=== PATIENT | female | born 1980 | race Caucasian/White ===

== ENCOUNTER 2016-07-01 11:01 | Emergency (ER) | payer OTHER ==
[2016-07-01] MEDS ORDERED: methylPREDNISolone INJ 125 MG/2 ML VIAL (J2930) As Ordered ONE (12:06)
[2016-07-01] MEDS ORDERED: ALBUTEROL SULFATE 2.5 MG/0.5 ML INH NEB SOLN As Ordered ONE (12:15)
--- NOTE | 2016-07-01 12:30 | REP ---
Chest two views HISTORY: Cough Comparison: 05/13/2013 The right lung is clear. A calcified granuloma is present in the left lower lobe. The heart is normal in size. The pulmonary vasculature is normal in appearance. The bony structure is intact. IMPRESSION: Old granulomatous disease. Signed by Devan Blakely MD 07/01/2016 12:22 P
[2016-07-01] MEDS ORDERED: IPRATROPIUM 0.5MG/ALBUTEROL 2.5MG INH SOL UD 3ML (DUONEB)(J7620) As Ordered ONE (12:31)
[2016-07-01] MEDS ORDERED: ALBUTEROL 90 MCG/ACT 8GM HFA INHALER As Ordered ONE (13:44)
--- NOTE | 2016-07-01 13:49 | EDDOCDS ---
Physician Documentation [facility] Name: Zully Avila Age: 36 yrs Sex: Female : 1980 Arrival Date: 07/01/2016 Time: 11:01 Bed PD Private MD: Devan Padilla W Disposition: 07/01/16 13:30 Discharged to Home/Self Care. Impression: Unspecified asthma with (acute) exacerbation, Cough. - Condition is Stable. - Discharge Instructions: Asthma, Adult, Cough, Adult, [id number]. - Prescriptions for Prednisone 20 mg Oral Tablet - take 2 tablet by ORAL route once daily for 5 days; 10 tablet. ipratropium- albuterol 0.5 mg-3 mg(2.5 mg base)/3 mL Inhalation Solution for Nebulization - inhale 1 ampule by INHALATION route 3-4 times daily As needed; 1 box. - Medication Reconciliation, Local Pharmacy Hours form. - Follow up: Emergency Department; When: As needed; Reason: Worsening of conditions. Follow up: Private Physician; When: 2 - 3 days; Reason: Wound/Symptom Recheck, Recheck today's complaints, Continuance of care. - Problem is new. - Symptoms have improved. Historical: - Allergies: no known allergies; - Home Meds: 1. Fish Oil 1,000 mg Oral cap daily 2. Ventolin HFA 90 mcg/actuation Nebulizer HFAA 2 puffs PRN 3. Vitamin D Oral 3000 unit daily - PMHx: Asthma; Bronchitis; ovarian cancer; - PSHx: removal right ovary; - Social history: Smoking status: Patient states was never smoker of tobacco. No barriers to communication noted, The patient speaks fluent Luxembourgish, Speaks appropriately for age. - Family history: Not pertinent. - : The pt / caregiver states he / she is not on anticoagulants. Home medication list is obtained from the patient. - Exposure Risk Screening:: None identified. 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 1 in. (154.94 cm) (R); Pain 0/10; 13:19 BP 179 / 77; Pulse 92; Resp 18; Temp 97.8(T); Pulse Ox 99% on R/A; Pain 0/10; jb5 11:02 Body Mass Index 34.01 (81.65 kg, 154.94 cm) ct3 MDM: 12:00 Albuterol 2.5 mg Nebulizer once ordered. dt4 12:00 Call Respiratory ordered. dt4 12:00 methylPREDNISolone Sodium Succinate 125 mg IM once ordered. dt4 12:01 Chest, 2 View (pa\E\lat) Ordered. EDMS 12:02 Call Respiratory complete. srm 12:30 Albuterol-Ipratropium 3 ml Inhalation once ordered. dt4 12:42 Financial registration complete. lg 12:43 [facility] Payment Agreement was scanned into [employer] and attached to record. lg 13:24 Ventolin Inhaler 2 puffs Inhalation once; GIVE TO PT TO TAKE HOME, THANK YOU. ordered. dt4 Administered Medications: 12:11 Drug: methylPREDNISolone Sodium Succinate 125 mg [methylprednisolone sodium succ 125 mg jf3 solution for injection (125 mg)] Route: IM; Site: left gluteus; 12:20 Drug: Albuterol 2.5 mg [albuterol sulfate 2.5 mg/0.5 mL solution for nebulization (0.5 cs15 mL)] Route: Nebulizer; 12:34 Drug: Albuterol-Ipratropium 3 ml [ipratropium-albuterol 0.5 mg-3 mg(2.5 mg base)/3 mL cs15 nebulization soln (3 mL)] Route: Inhalation; 13:47 Drug: Ventolin 2 puffs [Ventolin HFA 90 mcg/actuation aerosol inhaler (2 puffs)] Route: srm Inhalation; Signatures: Dispatcher [employer] EDMS Nasreen Man RN RN srm Arti Pascual, Reg Reg lg Edilia Marquez, THERESAC PA-C dt4 Salvador Lucio RT cs15 Kevin Small RN jf3 The chart was reviewed and I authenticate all verbal orders and agree with the evaluation and treatment provided.Attachments: 12:43 [facility] Payment Agreement lg MTDD
--- NOTE | 2016-07-01 13:49 | EDDOCDS ---
Nurse's Notes [facility] Name: Zully Avila Age: 36 yrs Sex: Female : 1980 Arrival Date: 07/01/2016 Time: 11:01 Bed PD Private MD: Devan Padilla W Diagnosis: Unspecified asthma with (acute) exacerbation;Cough Presentation: 07/01 11:11 Presenting complaint: Patient states: has had cold symptoms for past couple of weeks- srm stuffy nose, coughing non productive. Adult Sepsis Screening: The patient does not have new or worsening altered mentation. Patient's respiratory rate is less than 22. Systolic blood pressure is greater than 100. Patient has a qSOFA score of 0- Negative Sepsis Screen. Suicide/Homicide risk assessment- the patient denies having any suicidal and/or homicidal ideations and does not present with any other emotional, behavioral or mental health complaints. Status: Patient is not a service administrator or dependent. Transition of care: patient was not received from another setting of care. 11:11 Acuity: DAISY Level 4 srm 11:11 Method Of Arrival: Walkin/Carried/Asstd srm Triage Assessment: 11:13 General: Appears in no apparent distress, Behavior is appropriate for age, cooperative. srm Pain: Denies pain. HIV screening NA for this visit Offered previously. 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 Fish Oil 1,000 mg Oral cap daily 2. Ventolin HFA 90 mcg/actuation Nebulizer HFAA 2 puffs PRN 3. Vitamin D Oral 3000 unit daily - PMHx: Asthma; Bronchitis; ovarian cancer; - PSHx: removal right ovary; - Social history: Smoking status: Patient states was never smoker of tobacco. No barriers to communication noted, The patient speaks fluent Sierra Leonean, Speaks appropriately for age. - Family history: Not pertinent. - : The pt / caregiver states he / she is not on anticoagulants. Home medication list is obtained from the patient. - Exposure Risk Screening:: None identified. Screenin:47 Screening information is obtained from the patient. Fall risk: No risks identified. srm Assistance ADL's: requires no assistance with activities of daily living. Abuse/DV Screen: The patient / caregiver reports he/she is: not in a situation that causes fear, pain or injury. Nutritional screening: No deficits noted. Advance Directives: There is no active DNR order. home support is adequate. Assessment: 13:47 General: Appears in no apparent distress, Behavior is appropriate for age, cooperative. srm Respiratory: Airway is compromised Respiratory effort is even, unlabored, Reports cough that is. Derm: No deficits noted. Vital Signs: 11:02 BP 144 / 82; Pulse 76; Resp 18; Temp 97.1(O); Pulse Ox 99% on R/A; Weight 81.65 kg (R); ct3 Height 5 ft. 1 in. (154.94 cm) (R); Pain 0/10; 13:19 BP 179 / 77; Pulse 92; Resp 18; Temp 97.8(T); Pulse Ox 99% on R/A; Pain 0/10; jb5 11:02 Body Mass Index 34.01 (81.65 kg, 154.94 cm) ct3 Vitals: 11:02 Log In Time: July 01, 2016 at 10:59. ct3 ED Course: 11:01 Patient visited by Abigail Gaffney PCA. ct3 11:01 Devan Padilla is Private Physician. ct3 11:01 Patient moved to Waiting ct3 11:02 Patient moved to Pre RCE ct3 11:12 Triage Initiated srm 11:13 Patient moved to Triage 3 srm 11:47 Patient visited by Ivon Muir PCA. jb5 11:48 Edilia Marquez PA-C [facility]. dt4 11:48 Paola Sharif MD is Attending Physician. dt4 11:48 Patient visited by Edilia Marquez PA-C. dt4 12:02 Patient moved to PD2 / srm 12:43 [facility] Payment Agreement was scanned into [employer] and attached to record. lg 12:49 Patient visited by Ivon Muir PCA. jb5 12:59 Chest, 2 View (pa\E\lat) Returned. EDMS 13:19 Patient visited by Ivon Muir PCA. jbJane 13:20 Patient visited by Ivon Muir PCA. jb5 13:47 The patient / caregiver is instructed regarding the plan of care and ED course. Patient srm has correct armband on for positive identification. 13:47 No IV's were initiated during this patient's visit. No procedures done that require srm assistance. Administered Medications: 12:11 Drug: methylPREDNISolone Sodium Succinate 125 mg [methylprednisolone sodium succ 125 mg jf3 solution for injection (125 mg)] Route: IM; Site: left gluteus; 12:20 Drug: Albuterol 2.5 mg [albuterol sulfate 2.5 mg/0.5 mL solution for nebulization (0.5 cs15 mL)] Route: Nebulizer; 12:34 Drug: Albuterol-Ipratropium 3 ml [ipratropium-albuterol 0.5 mg-3 mg(2.5 mg base)/3 mL cs15 nebulization soln (3 mL)] Route: Inhalation; 13:47 Drug: Ventolin 2 puffs [Ventolin HFA 90 mcg/actuation aerosol inhaler (2 puffs)] Route: srm Inhalation; RT: 12:21 Initial Med Neb Given as ordered. Respiratory: Respiratory effort is unlabored, cs15 Respiratory pattern is regular Breath sounds are diminished bilaterally. Reports that she gets cold symptoms like this every winter that lead to SOB. She has a ventiolin inhaler which she uses without a spacer. 12:34 Subsequent Med Neb Given as ordered. Respiratory: Breath sounds are diminished cs15 bilaterally. Reports that the first tx helped her a little. 12:44 Respiratory: Breath sounds are clear bilaterally. cs15 Order Results: Radiology Order: Chest, 2 View (pa\E\lat) Test: Chest, 2 View (pa\E\lat) REASON FOR EXAMINATION: Cough;Shortness of Breath; Chest two views; ; HISTORY: Cough; ; Comparison: 05/13/2013; ; The right lung is clear. A calcified granuloma is present in the left lower; lobe. The heart is normal in size. The pulmonary vasculature is normal in; appearance. The bony structure is intact.; ; IMPRESSION: Old granulomatous disease.; ; ; Signed by; Devan Blakely MD 07/01/2016 12:22 P; Outcome: 13:30 Discharge ordered by Provider. dt4 13:47 Discharge Assessment: patient administered narcotics - no. The following High Risk srm Discharge criteria are identified: None. Discharged to home ambulatory. Condition: good Condition: stable. Discharge instructions given to patient, Instructed on discharge instructions, follow up and referral plans. medication usage, Demonstrated understanding of instructions, medications, Pt was receptive of discharge instructions/ teaching. Prescriptions given X 2. No special radiology studies were completed. Property sent home with patient. 13:48 Patient left the ED. srm Signatures: Dispatcher [employer] EDMS Nasreen Man, RN RN srm Arti Pascual, Reg Reg lg Muir, Ivon, ACCOUNT SUPPORT MANAGER ACCOUNT SUPPORT MANAGER jb5 Abigail Gaffney, ACCOUNT SUPPORT MANAGER ACCOUNT SUPPORT MANAGER ct3 Edilia Marquez, PAPaula PA-C dt4 Salvador Lucio,RT RT cs15 Kevin Small,RN RN jf3 MTDD
--- NOTE | 2016-07-03 14:49 | EDDOCDS ---
Physician Documentation [facility] Name: Zully Avila Age: 36 yrs Sex: Female : 1980 Arrival Date: 07/01/2016 Time: 11:01 Bed PD Private MD: Devan Padilla W Disposition: 07/01/16 13:30 Discharged to Home/Self Care. Impression: Unspecified asthma with (acute) exacerbation, Cough. - Condition is Stable. - Discharge Instructions: Asthma, Adult, Cough, Adult, [id number]. - Prescriptions for Prednisone 20 mg Oral Tablet - take 2 tablet by ORAL route once daily for 5 days; 10 tablet. ipratropium- albuterol 0.5 mg-3 mg(2.5 mg base)/3 mL Inhalation Solution for Nebulization - inhale 1 ampule by INHALATION route 3-4 times daily As needed; 1 box. - Medication Reconciliation, Local Pharmacy Hours form. - Follow up: Emergency Department; When: As needed; Reason: Worsening of conditions. Follow up: Private Physician; When: 2 - 3 days; Reason: Wound/Symptom Recheck, Recheck today's complaints, Continuance of care. - Problem is new. - Symptoms have improved. Historical: - Allergies: no known allergies; - Home Meds: 1. Fish Oil 1,000 mg Oral cap daily 2. Ventolin HFA 90 mcg/actuation Nebulizer HFAA 2 puffs PRN 3. Vitamin D Oral 3000 unit daily - PMHx: Asthma; Bronchitis; ovarian cancer; - PSHx: removal right ovary; - Social history: Smoking status: Patient states was never smoker of tobacco. No barriers to communication noted, The patient speaks fluent Japanese, Speaks appropriately for age. - Family history: Not pertinent. - : The pt / caregiver states he / she is not on anticoagulants. Home medication list is obtained from the patient. - Exposure Risk Screening:: None identified. 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 1 in. (154.94 cm) (R); Pain 0/10; 13:19 BP 179 / 77; Pulse 92; Resp 18; Temp 97.8(T); Pulse Ox 99% on R/A; Pain 0/10; jb5 11:02 Body Mass Index 34.01 (81.65 kg, 154.94 cm) ct3 MDM: 12:00 Albuterol 2.5 mg Nebulizer once ordered. dt4 12:00 Call Respiratory ordered. dt4 12:00 methylPREDNISolone Sodium Succinate 125 mg IM once ordered. dt4 12:01 Chest, 2 View (pa\E\lat) Ordered. EDMS 12:02 Call Respiratory complete. srm 12:30 Albuterol-Ipratropium 3 ml Inhalation once ordered. dt4 12:42 Financial registration complete. lg 12:43 [facility] Payment Agreement was scanned into [employer] and attached to record. lg 13:24 Ventolin Inhaler 2 puffs Inhalation once; GIVE TO PT TO TAKE HOME, THANK YOU. ordered. dt4 07/02 09:06 T-Sheet-- Draft Copy was scanned into [employer] and attached to record. gb Administered Medications: 07/01 12:11 Drug: methylPREDNISolone Sodium Succinate 125 mg [methylprednisolone sodium succ 125 mg jf3 solution for injection (125 mg)] Route: IM; Site: left gluteus; 12:20 Drug: Albuterol 2.5 mg [albuterol sulfate 2.5 mg/0.5 mL solution for nebulization (0.5 cs15 mL)] Route: Nebulizer; 12:34 Drug: Albuterol-Ipratropium 3 ml [ipratropium-albuterol 0.5 mg-3 mg(2.5 mg base)/3 mL cs15 nebulization soln (3 mL)] Route: Inhalation; 13:47 Drug: Ventolin 2 puffs [Ventolin HFA 90 mcg/actuation aerosol inhaler (2 puffs)] Route: srm Inhalation; Signatures: Dispatcher [employer] EDMS Nasreen Man RN RN srm Jazmyn Fontana, Reg Reg gb Arti Pascual, Reg Reg lg Edilia Marquez, PA-C PA-C dt4 Salvador Lucio RT cs15 Kevin Small RN jf3 The chart was reviewed and I authenticate all verbal orders and agree with the evaluation and treatment provided.Attachments: 12:43 [facility] Payment Agreement lg 07/02 09:06 T-Sheet-- Draft Copy gb Chart Complete MTDD
--- NOTE | 2016-07-03 14:49 | EDDOCDS ---
Nurse's Notes [facility] Name: Zully Avila Age: 36 yrs Sex: Female : 1980 Arrival Date: 07/01/2016 Time: 11:01 Bed PD Private MD: Devan Padilla W Diagnosis: Unspecified asthma with (acute) exacerbation;Cough Presentation: 07/01 11:11 Presenting complaint: Patient states: has had cold symptoms for past couple of weeks- srm stuffy nose, coughing non productive. Adult Sepsis Screening: The patient does not have new or worsening altered mentation. Patient's respiratory rate is less than 22. Systolic blood pressure is greater than 100. Patient has a qSOFA score of 0- Negative Sepsis Screen. Suicide/Homicide risk assessment- the patient denies having any suicidal and/or homicidal ideations and does not present with any other emotional, behavioral or mental health complaints. Status: Patient is not a full service supervisor or dependent. Transition of care: patient was not received from another setting of care. 11:11 Acuity: DAISY Level 4 srm 11:11 Method Of Arrival: Walkin/Carried/Asstd srm Triage Assessment: 11:13 General: Appears in no apparent distress, Behavior is appropriate for age, cooperative. srm Pain: Denies pain. HIV screening NA for this visit Offered previously. 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 Fish Oil 1,000 mg Oral cap daily 2. Ventolin HFA 90 mcg/actuation Nebulizer HFAA 2 puffs PRN 3. Vitamin D Oral 3000 unit daily - PMHx: Asthma; Bronchitis; ovarian cancer; - PSHx: removal right ovary; - Social history: Smoking status: Patient states was never smoker of tobacco. No barriers to communication noted, The patient speaks fluent Nepalese, Speaks appropriately for age. - Family history: Not pertinent. - : The pt / caregiver states he / she is not on anticoagulants. Home medication list is obtained from the patient. - Exposure Risk Screening:: None identified. Screenin:47 Screening information is obtained from the patient. Fall risk: No risks identified. srm Assistance ADL's: requires no assistance with activities of daily living. Abuse/DV Screen: The patient / caregiver reports he/she is: not in a situation that causes fear, pain or injury. Nutritional screening: No deficits noted. Advance Directives: There is no active DNR order. home support is adequate. Assessment: 13:47 General: Appears in no apparent distress, Behavior is appropriate for age, cooperative. srm Respiratory: Airway is compromised Respiratory effort is even, unlabored, Reports cough that is. Derm: No deficits noted. Vital Signs: 11:02 BP 144 / 82; Pulse 76; Resp 18; Temp 97.1(O); Pulse Ox 99% on R/A; Weight 81.65 kg (R); ct3 Height 5 ft. 1 in. (154.94 cm) (R); Pain 0/10; 13:19 BP 179 / 77; Pulse 92; Resp 18; Temp 97.8(T); Pulse Ox 99% on R/A; Pain 0/10; jb5 11:02 Body Mass Index 34.01 (81.65 kg, 154.94 cm) ct3 Vitals: 11:02 Log In Time: July 01, 2016 at 10:59. ct3 ED Course: 11:01 Patient visited by Abigail Gaffney PCA. ct3 11:01 Devan Padilla is Private Physician. ct3 11:01 Patient moved to Waiting ct3 11:02 Patient moved to Pre RCE ct3 11:12 Triage Initiated srm 11:13 Patient moved to Triage 3 srm 11:47 Patient visited by Ivon Muir PCA. jb5 11:48 [facility] dt4 11:48 Paola Sharif MD is Attending Physician. dt4 11:48 Patient visited by Edilia Marquez PA-C. dt4 12:02 Patient moved to PD2 / srm 12:43 [facility] Payment Agreement was scanned into [employer] and attached to record. lg 12:49 Patient visited by Ivon Muir PCA. jb5 12:59 Chest, 2 View (pa\E\lat) Returned. EDMS 13:19 Patient visited by Ivon Muir PCA. jbJane 13:20 Patient visited by Ivon Muir PCA. jb5 13:47 The patient / caregiver is instructed regarding the plan of care and ED course. Patient srm has correct armband on for positive identification. 13:47 No IV's were initiated during this patient's visit. No procedures done that require srm assistance. 07/02 09:06 T-Sheet-- Draft Copy was scanned into [employer] and attached to record. gb Administered Medications: 07/01 12:11 Drug: methylPREDNISolone Sodium Succinate 125 mg [methylprednisolone sodium succ 125 mg jf3 solution for injection (125 mg)] Route: IM; Site: left gluteus; 12:20 Drug: Albuterol 2.5 mg [albuterol sulfate 2.5 mg/0.5 mL solution for nebulization (0.5 cs15 mL)] Route: Nebulizer; 12:34 Drug: Albuterol-Ipratropium 3 ml [ipratropium-albuterol 0.5 mg-3 mg(2.5 mg base)/3 mL cs15 nebulization soln (3 mL)] Route: Inhalation; 13:47 Drug: Ventolin 2 puffs [Ventolin HFA 90 mcg/actuation aerosol inhaler (2 puffs)] Route: srm Inhalation; RT: 12:21 Initial Med Neb Given as ordered. Respiratory: Respiratory effort is unlabored, cs15 Respiratory pattern is regular Breath sounds are diminished bilaterally. Reports that she gets cold symptoms like this every winter that lead to SOB. She has a ventiolin inhaler which she uses without a spacer. 12:34 Subsequent Med Neb Given as ordered. Respiratory: Breath sounds are diminished cs15 bilaterally. Reports that the first tx helped her a little. 12:44 Respiratory: Breath sounds are clear bilaterally. cs15 Order Results: Radiology Order: Chest, 2 View (pa\E\lat) Test: Chest, 2 View (pa\E\lat) REASON FOR EXAMINATION: Cough;Shortness of Breath; Chest two views; ; HISTORY: Cough; ; Comparison: 05/13/2013; ; The right lung is clear. A calcified granuloma is present in the left lower; lobe. The heart is normal in size. The pulmonary vasculature is normal in; appearance. The bony structure is intact.; ; IMPRESSION: Old granulomatous disease.; ; ; Signed by; Devan Blakely MD 07/01/2016 12:22 P; Outcome: 13:30 Discharge ordered by Provider. dt4 13:47 Discharge Assessment: patient administered narcotics - no. The following High Risk srm Discharge criteria are identified: None. Discharged to home ambulatory. Condition: good Condition: stable. Discharge instructions given to patient, Instructed on discharge instructions, follow up and referral plans. medication usage, Demonstrated understanding of instructions, medications, Pt was receptive of discharge instructions/ teaching. Prescriptions given X 2. No special radiology studies were completed. Property sent home with patient. 13:48 Patient left the ED. srm Signatures: Dispatcher [employer] EDWA Nasreen Man, RN RN srm Marizol, Jazmyn, Reg Reg gb Arti Pascual, Reg Reg lg Ivon Muir, APPRENTICE PAINTER HAND APPRENTICE PAINTER HAND jb5 Abigail Gaffney, APPRENTICE PAINTER HAND APPRENTICE PAINTER HAND ct3 Edilia Marquez, PA-C PA-C dt4 Salvador Lucio,RT RT cs15 Kevin Small,RN RN jf3 Chart Complete MTDD
--- NOTE | 2016-07-03 14:49 | EDDOCDS ---
Physician Documentation [facility] Name: Zully Avila Age: 36 yrs Sex: Female : 1980 Arrival Date: 07/01/2016 Time: 11:01 Bed PD Private MD: Devan Padilla W Disposition: 07/01/16 13:30 Discharged to Home/Self Care. Impression: Unspecified asthma with (acute) exacerbation, Cough. - Condition is Stable. - Discharge Instructions: Asthma, Adult, Cough, Adult, [id number]. - Prescriptions for Prednisone 20 mg Oral Tablet - take 2 tablet by ORAL route once daily for 5 days; 10 tablet. ipratropium- albuterol 0.5 mg-3 mg(2.5 mg base)/3 mL Inhalation Solution for Nebulization - inhale 1 ampule by INHALATION route 3-4 times daily As needed; 1 box. - Medication Reconciliation, Local Pharmacy Hours form. - Follow up: Emergency Department; When: As needed; Reason: Worsening of conditions. Follow up: Private Physician; When: 2 - 3 days; Reason: Wound/Symptom Recheck, Recheck today's complaints, Continuance of care. - Problem is new. - Symptoms have improved. Historical: - Allergies: no known allergies; - Home Meds: 1. Fish Oil 1,000 mg Oral cap daily 2. Ventolin HFA 90 mcg/actuation Nebulizer HFAA 2 puffs PRN 3. Vitamin D Oral 3000 unit daily - PMHx: Asthma; Bronchitis; ovarian cancer; - PSHx: removal right ovary; - Social history: Smoking status: Patient states was never smoker of tobacco. No barriers to communication noted, The patient speaks fluent Italian, Speaks appropriately for age. - Family history: Not pertinent. - : The pt / caregiver states he / she is not on anticoagulants. Home medication list is obtained from the patient. - Exposure Risk Screening:: None identified. 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 1 in. (154.94 cm) (R); Pain 0/10; 13:19 BP 179 / 77; Pulse 92; Resp 18; Temp 97.8(T); Pulse Ox 99% on R/A; Pain 0/10; jb5 11:02 Body Mass Index 34.01 (81.65 kg, 154.94 cm) ct3 MDM: 12:00 Albuterol 2.5 mg Nebulizer once ordered. dt4 12:00 Call Respiratory ordered. dt4 12:00 methylPREDNISolone Sodium Succinate 125 mg IM once ordered. dt4 12:01 Chest, 2 View (pa\E\lat) Ordered. EDMS 12:02 Call Respiratory complete. srm 12:30 Albuterol-Ipratropium 3 ml Inhalation once ordered. dt4 12:42 Financial registration complete. lg 12:43 [facility] Payment Agreement was scanned into [employer] and attached to record. lg 13:24 Ventolin Inhaler 2 puffs Inhalation once; GIVE TO PT TO TAKE HOME, THANK YOU. ordered. dt4 07/02 09:06 T-Sheet-- Draft Copy was scanned into [employer] and attached to record. gb Administered Medications: 07/01 12:11 Drug: methylPREDNISolone Sodium Succinate 125 mg [methylprednisolone sodium succ 125 mg jf3 solution for injection (125 mg)] Route: IM; Site: left gluteus; 12:20 Drug: Albuterol 2.5 mg [albuterol sulfate 2.5 mg/0.5 mL solution for nebulization (0.5 cs15 mL)] Route: Nebulizer; 12:34 Drug: Albuterol-Ipratropium 3 ml [ipratropium-albuterol 0.5 mg-3 mg(2.5 mg base)/3 mL cs15 nebulization soln (3 mL)] Route: Inhalation; 13:47 Drug: Ventolin 2 puffs [Ventolin HFA 90 mcg/actuation aerosol inhaler (2 puffs)] Route: srm Inhalation; Signatures: Dispatcher [employer] EDMS Nasreen Man RN RN srm Jazmyn Fontana, Reg Reg gb Arti Pascual, Reg Reg lg Edilia Marquez, PA-C PA-C dt4 Salvador Lucio RT cs15 Kevin Small RN jf3 The chart was reviewed and I authenticate all verbal orders and agree with the evaluation and treatment provided.Attachments: 12:43 [facility] Payment Agreement lg 07/02 09:06 T-Sheet-- Draft Copy gb Chart Complete MTDD
== END 2016-07-01 13:48 | disposition home or self-care (01) ==
LOC: M ED 11:01
DX: J45.901 Unspecified asthma with (acute) exacerbation (principal); R05 Cough; J40 Bronchitis, not specified as acute or chronic; Z85.43 Personal history of malignant neoplasm of ovary; Z79.51 Long term (current) use of inhaled steroids; Z79.899 Other long term (current) drug therapy
CPT/HCPCS: 71020; 94640; 96372; 99283; J2930

== ENCOUNTER 2016-10-30 15:34 | Emergency (ER) | payer OTHER ==
[~2016-10-30] VITALS: Ht 154.9 cm; Wt 81.6 kg
[2016-10-30] MEDS ORDERED: ALBU17IN INH (15:45)
[2016-10-30] MEDS ORDERED: FISH1000 PO (15:45)
[2016-10-30] MEDS ORDERED: VITA200015 PO (15:45)
[2016-10-30] MEDS ORDERED: TESS100C PO (17:24)
[2016-10-30 17:36] VITALS: BP 141/91
[2016-10-30] MEDS ORDERED: GUAI5ELAC PO (17:48)
--- NOTE | 2016-10-31 08:05 | REP ---
CHEST, TWO VIEWS: Comparison 07/01/2016. Calcified granulomas again seen in the left lung. There is no acute infiltrate. The heart and mediastinum are within normal limits. There is mild curvature of the thoracic spine convex to the right. IMPRESSION: No acute infiltrate. Signed by Darnell Maddox MD 10/31/2016 12:20 P
== END 2016-10-30 17:59 | disposition home or self-care (01) ==
LOC: M ED 16:22
DX: R05 Cough (principal); Z85.43 Personal history of malignant neoplasm of ovary; Z90.79 Acquired absence of other genital organ(s); Z79.899 Other long term (current) drug therapy

== ENCOUNTER 2017-03-10 22:06 | Emergency (ER) | payer OTHER ==
[~2017-03-10] VITALS: Ht 154.9 cm; Wt 81.8 kg
[~2017-03-10 22:06] MED LIST: ALBU17IN INH; FISH1000 PO; GUAI5ELAC PO; TESS100C PO; VITA200015 PO
[2017-03-11 01:59] VITALS: BP 132/67
== END 2017-03-11 03:36 | disposition left against medical advice (07) ==
LOC: M ED 22:06
DX: J02.9 Acute pharyngitis, unspecified (principal); Z53.21 Procedure and treatment not carried out due to patient leaving prior to being seen by health care provider

== ENCOUNTER → 2017-10-23 | Outpatient (REF) | payer OTHER ==
[2017-10-26 14:15] LABS: HPV HYBRID CAPTURE II Negative (Negative)
== END ==
LOC: M LAB REF 19:19
DX: Z12.4 Encounter for screening for malignant neoplasm of cervix (principal)

== ENCOUNTER → 2017-11-30 | Outpatient (REF) | payer OTHER | LOC: M LAB REF 11:58 | DX: Z12.4 Encounter for screening for malignant neoplasm of cervix (principal) ==

== ENCOUNTER → 2018-02-25 | Outpatient (REF) | payer OTHER | LOC: M LAB REF 21:50 | DX: J02.9 Acute pharyngitis, unspecified (principal) ==

== ENCOUNTER → 2018-03-05 | Outpatient (REF) | payer OTHER ==
[2018-03-07 14:16] LABS: HPV HYBRID CAPTURE II Negative (Negative)
== END ==
LOC: M LAB REF 17:49
DX: Z12.4 Encounter for screening for malignant neoplasm of cervix (principal)

== ENCOUNTER 2018-03-07 19:51 | Emergency (ER) | payer OTHER | END 2018-03-07 22:47 | disposition home or self-care (01) | LOC: M ED 19:51 | DX: Z04.1 Encounter for examination and observation following transport accident (principal); S70.12XA Contusion of left thigh, initial encounter; S46.912A Strain of unspecified muscle, fascia and tendon at shoulder and upper arm level, left arm, initial encounter; S13.4XXA Sprain of ligaments of cervical spine, initial encounter; V43.52XA Car driver injured in collision with other type car in traffic accident, initial encounter; Y92.89 Other specified places as the place of occurrence of the external cause; Z79.899 Other long term (current) drug therapy | CPT/HCPCS: 73030 ==

== ENCOUNTER → 2018-03-13 | Outpatient (REF) | payer OTHER ==
[2018-03-14 10:24] LABS: RUBELLA IgG QUALITATIVE >500.0 (IMMUNE)
[2018-03-14 10:24] LABS: HEPATITIS B SURFACE ANTIBODY NEGATIVE (POSITIVE)
[2018-03-15 08:06] LABS: HERPES ZOSTER, VARICELLA IgG 1724 index (Immune >165)
[2018-03-15 08:06] LABS: MUMPS VIRUS IgG ANTIBODY 17.7 AU/mL (Immune >10.9); RUBEOLA IgG ANTIBODY <25.0 AU/mL (Immune >29.9)
== END ==
LOC: M LAB REF 19:05
DX: Z01.84 Encounter for antibody response examination (principal); Z23 Encounter for immunization
CPT/HCPCS: 86762

== ENCOUNTER 2018-05-06 11:39 | Inpatient (IN) | payer OTHER ==
[2018-05-06] MEDS: MORPHINE 4 MG/ML 1ML VIAL/SYRINGE (J2270) IV (13:07)
[2018-05-06 13:11] LABS: HEMATOCRIT 39.6 % (36.0-47.0); HEMOGLOBIN 13.1 g/dl (12.0-15.5); MEAN CORPUSCULAR HEMOGLOBIN 27.9 pg (27.0-33.0); MEAN CORPUSCULAR HGB CONC 33.1 g/dl (32.0-36.5); MEAN CORPUSCULAR VOLUME 84.3 fl (80.0-96.0); PLATELET COUNT, AUTOMATED 198 10^3/uL (150-450); RED CELL DISTRIBUTION WIDTH 14.4 % (11.5-14.5); WHITE BLOOD COUNT 21.7 10^3/uL (4.0-10.0)
[2018-05-06 13:25] LABS: D-DIMER QUANT 1547.6 ng/ml (<500)
[2018-05-06 13:28] LABS: LACTIC ACID SEPSIS PROTOCOL 1.5 MMOL/L (0.4-2.0)
[2018-05-06 13:38] LABS: ADD MANUAL DIFFER YES; DIFF SLIDE NUMBER 101; POSITIVE MORPH POS FLAG
[2018-05-06 13:40] LABS: ERYTHROCYTE SEDIMENTATION RATE 59 mm/hr (0-20)
[2018-05-06 13:41] LABS: CONTROL LINE HCG INT CTR LINE PRESENT; HCG, SERUM QUALITATIVE NEGATIVE (NEGATIVE)
[2018-05-06 13:58] LABS: BANDS 8 % (< 11); LYMPHOCYTES 1 % (16-52); MONOCYTES 2 % (0-8); NEUTROPHILS 89 % (35-75)
[2018-05-06 13:59] LABS: ANISOCYTOSIS 1+; PLATELET ESTIMATE NORMAL (NORMAL)
[2018-05-06 14:00] LABS: ALBUMIN 3.2 GM/DL (3.2-5.2); ALBUMIN/GLOBULIN RATIO 0.82 (1.00-1.93); ALKALINE PHOSPHATASE 117 U/L (45-117); ALT/SGPT 31 U/L (12-78); ANION GAP 10 MEQ/L (8-16); AST/SGOT 18 U/L (7-37); BILIRUBIN,DIRECT 0.2 MG/DL (0.0-0.2); BILIRUBIN,TOTAL 0.4 MG/DL (0.2-1.0); BLOOD UREA NITROGEN 14 MG/DL (7-18); CALCIUM LEVEL 8.4 MG/DL (8.5-10.1); CARBON DIOXIDE LEVEL 24 MEQ/L (21-32); CHLORIDE LEVEL 101 MEQ/L (98-107); CREATININE FOR GFR 0.81 MG/DL (0.55-1.30); GLOMERULAR FILTRATION RATE > 60.0 (>60); GLUCOSE, FASTING 102 MG/DL (70-100); SODIUM LEVEL 135 MEQ/L (136-145); TOTAL PROTEIN 7.1 GM/DL (6.4-8.2)
[2018-05-06] MEDS ORDERED: cefTRIAXone SOD 2 GM in D5W MINI-BAG PLUS 50 ML IV (15:00)
[2018-05-06] MEDS: NS 1,000 ML IV (16:35)
[2018-05-06] MEDS: VANCOMYCIN HCL 1,000 MG, VIAL MATE ADAPTER 1 EACH in D5W 250 ML IV ×2 (16:35→22:29)
[2018-05-06] MEDS ORDERED: ISOVUE-370 76% 100ML VIAL (Q9967) As Ordered (16:50)
[2018-05-06] MEDS: ACETAMINOPHEN 325 MG TAB PO (16:53)
[2018-05-06] MEDS: PIPERACILLIN/TAZOBACTAM SOD 3.375 GM in D5W MINI-BAG PLUS 50 ML IV (18:03)
[2018-05-06] MEDS: IBUPROFEN 800 MG TAB PO (19:10)
[2018-05-06] MEDS: POTASSIUM CHLORIDE 10 MEQ SR TABLET PO (19:45)
[2018-05-07] MEDS ORDERED: AMPICILLIN SOD/SULBACTAM SOD 3 GM in D5W MINI-BAG PLUS 100 ML IV
[2018-05-07] MEDS: AMPICILLIN SOD/SULBACTAM SOD 3 GM in D5W MINI-BAG PLUS 100 ML IV ×4 (00:33→17:34)
[2018-05-07] MEDS: PERCOCET 5MG/325MG TAB PO ×3 (03:48→19:47)
[2018-05-07] MEDS: ACETAMINOPHEN TAB 650MG DOSE (2X325MG) PO ×2 (05:10→14:34)
[2018-05-07] MEDS: VANCOMYCIN HCL 1,000 MG, VIAL MATE ADAPTER 1 EACH in D5W 250 ML IV ×3 (06:02→22:34)
[2018-05-07 06:35] LABS: BASO % 0.2 % (0.0-1.0); EOS % 0.1 % (0.0-3.0); HEMATOCRIT 32.4 % (36.0-47.0); HEMOGLOBIN 10.8 g/dl (12.0-15.5); IMMATURE GRANULOCYTE % 1.1 % (0-3.0); LYMPH # 0.7 10^3/uL (1.5-4.5); LYMPH % 4.1 % (24.0-44.0); MEAN CORPUSCULAR HEMOGLOBIN 27.9 pg (27.0-33.0); MEAN CORPUSCULAR HGB CONC 33.3 g/dl (32.0-36.5); MEAN CORPUSCULAR VOLUME 83.7 fl (80.0-96.0); MONO # 0.7 10^3/uL (0.0-0.8); MONO % 4.3 % (0.0-5.0); NEUTROPHILS # 15.3 10^3/uL (1.8-7.7); NEUTROPHILS % 90.2 % (36.0-66.0); PLATELET COUNT, AUTOMATED 156 10^3/uL (150-450); RED BLOOD COUNT 3.87 10^6/uL (4.00-5.40); RED CELL DISTRIBUTION WIDTH 14.6 % (11.5-14.5); WHITE BLOOD COUNT 16.9 10^3/uL (4.0-10.0)
[2018-05-07 06:56] LABS: ANION GAP 8 MEQ/L (8-16); BLOOD UREA NITROGEN 11 MG/DL (7-18); CALCIUM LEVEL 8.5 MG/DL (8.5-10.1); CARBON DIOXIDE LEVEL 23 MEQ/L (21-32); CHLORIDE LEVEL 105 MEQ/L (98-107); CREATININE FOR GFR 0.77 MG/DL (0.55-1.30); GLOMERULAR FILTRATION RATE > 60.0 (>60); GLUCOSE, FASTING 131 MG/DL (70-100); POTASSIUM SERUM 3.2 MEQ/L (3.5-5.1); SODIUM LEVEL 136 MEQ/L (136-145)
[2018-05-07] MEDS: ENOXAPARIN 40 MG/0.4 ML SYRINGE (J1650) SC (08:36)
[2018-05-07] MEDS: INFLUENZA QUADRIVALENT PF VACCINE 0.5ML SYRINGE (90686) IM (08:37)
[2018-05-07] MEDS: POTASSIUM CHLORIDE 10 MEQ SR TABLET PO (09:00)
[2018-05-07 13:52] LABS: VANCOMYCIN LEVEL TROUGH 13.3 UG/ML (10.0-20.0)
[2018-05-07] MEDS: hydrOXYzine 10 MG TAB PO (19:38)
[2018-05-08] MEDS: AMPICILLIN SOD/SULBACTAM SOD 3 GM in D5W MINI-BAG PLUS 100 ML IV ×4 (00:06→18:10)
[2018-05-08] MEDS: PERCOCET 5MG/325MG TAB PO ×3 (04:53→18:09)
[2018-05-08] MEDS: VANCOMYCIN HCL 1,000 MG, VIAL MATE ADAPTER 1 EACH in D5W 250 ML IV ×3 (05:45→22:19)
[2018-05-08 07:26] LABS: BASO % 0.3 % (0.0-1.0); EOS % 0.3 % (0.0-3.0); HEMATOCRIT 31.6 % (36.0-47.0); HEMOGLOBIN 10.5 g/dl (12.0-15.5); IMMATURE GRANULOCYTE % 1.4 % (0-3.0); LYMPH # 0.8 10^3/uL (1.5-4.5); LYMPH % 5.6 % (24.0-44.0); MEAN CORPUSCULAR HEMOGLOBIN 27.9 pg (27.0-33.0); MEAN CORPUSCULAR HGB CONC 33.2 g/dl (32.0-36.5); MONO # 0.7 10^3/uL (0.0-0.8); MONO % 5.1 % (0.0-5.0); NEUTROPHILS # 12.7 10^3/uL (1.8-7.7); NEUTROPHILS % 87.3 % (36.0-66.0); PLATELET COUNT, AUTOMATED 177 10^3/uL (150-450); RED BLOOD COUNT 3.76 10^6/uL (4.00-5.40); RED CELL DISTRIBUTION WIDTH 14.7 % (11.5-14.5); WHITE BLOOD COUNT 14.5 10^3/uL (4.0-10.0)
[2018-05-08 07:54] LABS: ANION GAP 9 MEQ/L (8-16); BLOOD UREA NITROGEN 9 MG/DL (7-18); CALCIUM LEVEL 8.1 MG/DL (8.5-10.1); CARBON DIOXIDE LEVEL 24 MEQ/L (21-32); CHLORIDE LEVEL 103 MEQ/L (98-107); CREATININE FOR GFR 0.71 MG/DL (0.55-1.30); GLOMERULAR FILTRATION RATE > 60.0 (>60); GLUCOSE, FASTING 159 MG/DL (70-100); POTASSIUM SERUM 3.2 MEQ/L (3.5-5.1); SODIUM LEVEL 136 MEQ/L (136-145)
[2018-05-08] MEDS ORDERED: NORCO, ANEXSIA 5/325MG TABLET (HYDROcodone/ACETAMINOPHEN) PO (09:00)
[2018-05-08] MEDS: hydrOXYzine 10 MG TAB PO (09:07)
[2018-05-08] MEDS: MORPHINE 4 MG/ML 1ML VIAL/SYRINGE (J2270) IV (09:07)
[2018-05-08] MEDS: ENOXAPARIN 40 MG/0.4 ML SYRINGE (J1650) SC (09:08)
[2018-05-08 13:51] LABS: VANCOMYCIN LEVEL TROUGH 13.7 UG/ML (10.0-20.0)
[2018-05-08] MEDS: POTASSIUM CHLORIDE 10 MEQ SR TABLET PO ×2 (14:16→21:01)
[2018-05-08] MEDS: KETOROLAC 30 MG/ML VIAL (J1885) IV (16:51)
[2018-05-08 18:36] LABS: ANTI-STREPTOLYSIN O QUANT 55.7 IU/ML (<214.0)
[2018-05-08] MEDS: EUCERIN 120GM CREAM EXT (21:00)
[2018-05-09] MEDS: KETOROLAC 30 MG/ML VIAL (J1885) IV ×3 (01:20→20:34)
[2018-05-09] MEDS: PERCOCET 5MG/325MG TAB PO ×2 (04:48→16:52)
[2018-05-09] MEDS: VANCOMYCIN HCL 1,000 MG, VIAL MATE ADAPTER 1 EACH in D5W 250 ML IV ×3 (06:10→23:30)
[2018-05-09] MEDS: hydrOXYzine 10 MG TAB PO ×2 (06:20→20:33)
[2018-05-09 06:23] LABS: HEMATOCRIT 30.1 % (36.0-47.0); MEAN CORPUSCULAR HEMOGLOBIN 27.7 pg (27.0-33.0); MEAN CORPUSCULAR HGB CONC 33.2 g/dl (32.0-36.5); MEAN CORPUSCULAR VOLUME 83.4 fl (80.0-96.0); PLATELET COUNT, AUTOMATED 211 10^3/uL (150-450); RED BLOOD COUNT 3.61 10^6/uL (4.00-5.40); RED CELL DISTRIBUTION WIDTH 14.8 % (11.5-14.5); WHITE BLOOD COUNT 15.5 10^3/uL (4.0-10.0)
[2018-05-09] MEDS: ENOXAPARIN 40 MG/0.4 ML SYRINGE (J1650) SC (08:14)
[2018-05-09] MEDS: POTASSIUM CHLORIDE 10 MEQ SR TABLET PO ×2 (08:15→20:33)
[2018-05-09] MEDS: EUCERIN 120GM CREAM EXT ×2 (09:10→20:33)
[2018-05-09] MEDS: GASTROGRAFIN SOLUTION 30ML PO ×2 (12:17→12:47)
[2018-05-09] MEDS ORDERED: ISOVUE-370 76% 100ML VIAL (Q9967) As Ordered (14:21)
[2018-05-09] MEDS: OMEPRAZOLE 20 MG CAP PO (15:29)
[2018-05-09 15:41] LABS: PLATELET ESTIMATE NORMAL (NORMAL)
[2018-05-09 16:01] LABS: LYMPHOCYTES 8 % (16-52); MONOCYTES 6 % (0-8); NEUTROPHILS 86 % (35-75)
[2018-05-09 16:03] LABS: TOXIC VACUOLATION 1+
[2018-05-09 18:46] LABS: POSITIVE DIFF POS FLAG
[2018-05-09 18:49] LABS: DIFF SLIDE NUMBER 25
[2018-05-09] MEDS: NS 1,000 ML IV (20:34)
[2018-05-10] MEDS: PERCOCET 5MG/325MG TAB PO ×3 (00:11→19:44)
[2018-05-10] MEDS: KETOROLAC 30 MG/ML VIAL (J1885) IV ×3 (04:48→22:30)
[2018-05-10 07:03] LABS: BASO % 0.3 % (0.0-1.0); EOS # 0.2 10^3/uL (0.0-0.50); EOS % 1.4 % (0.0-3.0); HEMATOCRIT 29.6 % (36.0-47.0); HEMOGLOBIN 9.4 g/dl (12.0-15.5); IMMATURE GRANULOCYTE % 1.7 % (0-3.0); LYMPH # 1.3 10^3/uL (1.5-4.5); LYMPH % 10.9 % (24.0-44.0); MEAN CORPUSCULAR HEMOGLOBIN 27.6 pg (27.0-33.0); MEAN CORPUSCULAR HGB CONC 31.8 g/dl (32.0-36.5); MEAN CORPUSCULAR VOLUME 87.1 fl (80.0-96.0); MONO # 0.8 10^3/uL (0.0-0.8); MONO % 6.6 % (0.0-5.0); NEUTROPHILS # 9.2 10^3/uL (1.8-7.7); NEUTROPHILS % 79.1 % (36.0-66.0); PLATELET COUNT, AUTOMATED 231 10^3/uL (150-450); RED CELL DISTRIBUTION WIDTH 15.5 % (11.5-14.5); WHITE BLOOD COUNT 11.7 10^3/uL (4.0-10.0)
[2018-05-10 07:35] LABS: ANION GAP 7 MEQ/L (8-16); BLOOD UREA NITROGEN 13 MG/DL (7-18); CALCIUM LEVEL 8.1 MG/DL (8.5-10.1); CARBON DIOXIDE LEVEL 27 MEQ/L (21-32); CHLORIDE LEVEL 104 MEQ/L (98-107); CREATININE FOR GFR 0.62 MG/DL (0.55-1.30); GLOMERULAR FILTRATION RATE > 60.0 (>60); GLUCOSE, FASTING 83 MG/DL (70-100); POTASSIUM SERUM 4.5 MEQ/L (3.5-5.1); SODIUM LEVEL 138 MEQ/L (136-145)
[2018-05-10] MEDS: VANCOMYCIN HCL 1,000 MG, VIAL MATE ADAPTER 1 EACH in D5W 250 ML IV ×3 (07:53→23:35)
[2018-05-10] MEDS: ENOXAPARIN 40 MG/0.4 ML SYRINGE (J1650) SC (09:05)
[2018-05-10] MEDS: OMEPRAZOLE 20 MG CAP PO (09:06)
[2018-05-10] MEDS: POTASSIUM CHLORIDE 10 MEQ SR TABLET PO ×2 (09:06→19:44)
[2018-05-10] MEDS: EUCERIN 120GM CREAM EXT ×2 (09:06→20:30)
[2018-05-11] MEDS: hydrOXYzine 10 MG TAB PO (03:58)
[2018-05-11] MEDS: PERCOCET 5MG/325MG TAB PO ×2 (03:59→13:18)
[2018-05-11 07:29] LABS: BASO % 0.3 % (0.0-1.0); EOS # 0.1 10^3/uL (0.0-0.50); EOS % 1.2 % (0.0-3.0); HEMATOCRIT 30.4 % (36.0-47.0); HEMOGLOBIN 9.7 g/dl (12.0-15.5); IMMATURE GRANULOCYTE % 2.4 % (0-3.0); LYMPH # 1.3 10^3/uL (1.5-4.5); LYMPH % 11.7 % (24.0-44.0); MEAN CORPUSCULAR HEMOGLOBIN 27.9 pg (27.0-33.0); MEAN CORPUSCULAR HGB CONC 31.9 g/dl (32.0-36.5); MEAN CORPUSCULAR VOLUME 87.4 fl (80.0-96.0); MONO # 0.6 10^3/uL (0.0-0.8); MONO % 5.6 % (0.0-5.0); NEUTROPHILS # 8.7 10^3/uL (1.8-7.7); NEUTROPHILS % 78.8 % (36.0-66.0); PLATELET COUNT, AUTOMATED 283 10^3/uL (150-450); RED BLOOD COUNT 3.48 10^6/uL (4.00-5.40); RED CELL DISTRIBUTION WIDTH 15.7 % (11.5-14.5); WHITE BLOOD COUNT 11.1 10^3/uL (4.0-10.0)
[2018-05-11 07:50] LABS: ANION GAP 7 MEQ/L (8-16); BLOOD UREA NITROGEN 14 MG/DL (7-18); CARBON DIOXIDE LEVEL 26 MEQ/L (21-32); CHLORIDE LEVEL 106 MEQ/L (98-107); CREATININE FOR GFR 0.61 MG/DL (0.55-1.30); GLOMERULAR FILTRATION RATE > 60.0 (>60); GLUCOSE, FASTING 86 MG/DL (70-100); POTASSIUM SERUM 4.7 MEQ/L (3.5-5.1); SODIUM LEVEL 139 MEQ/L (136-145); VANCOMYCIN LEVEL TROUGH 15.6 UG/ML (10.0-20.0)
[2018-05-11] MEDS: KETOROLAC 30 MG/ML VIAL (J1885) IV ×2 (07:51→20:26)
[2018-05-11] MEDS: OMEPRAZOLE 20 MG CAP PO (08:22)
[2018-05-11] MEDS: ENOXAPARIN 40 MG/0.4 ML SYRINGE (J1650) SC (08:22)
[2018-05-11] MEDS: VANCOMYCIN HCL 1,000 MG, VIAL MATE ADAPTER 1 EACH in D5W 250 ML IV ×2 (08:22→16:18)
[2018-05-11] MEDS: POTASSIUM CHLORIDE 10 MEQ SR TABLET PO ×2 (08:22→20:25)
[2018-05-11] MEDS: NS 1,000 ML IV (08:23)
[2018-05-11] MEDS: EUCERIN 120GM CREAM EXT ×2 (08:23→20:32)
[2018-05-12] MEDS: VANCOMYCIN HCL 1,000 MG, VIAL MATE ADAPTER 1 EACH in D5W 250 ML IV ×4 (00:30→23:36)
[2018-05-12] MEDS: PERCOCET 5MG/325MG TAB PO ×3 (02:12→18:33)
[2018-05-12 07:20] LABS: BASO % 0.4 % (0.0-1.0); EOS # 0.1 10^3/uL (0.0-0.50); EOS % 0.9 % (0.0-3.0); HEMATOCRIT 30.4 % (36.0-47.0); HEMOGLOBIN 9.7 g/dl (12.0-15.5); IMMATURE GRANULOCYTE % 2.6 % (0-3.0); LYMPH # 1.3 10^3/uL (1.5-4.5); LYMPH % 11.6 % (24.0-44.0); MEAN CORPUSCULAR HEMOGLOBIN 27.8 pg (27.0-33.0); MEAN CORPUSCULAR HGB CONC 31.9 g/dl (32.0-36.5); MEAN CORPUSCULAR VOLUME 87.1 fl (80.0-96.0); MONO # 0.6 10^3/uL (0.0-0.8); MONO % 5.1 % (0.0-5.0); NEUTROPHILS # 9.1 10^3/uL (1.8-7.7); NEUTROPHILS % 79.4 % (36.0-66.0); PLATELET COUNT, AUTOMATED 318 10^3/uL (150-450); RED BLOOD COUNT 3.49 10^6/uL (4.00-5.40); RED CELL DISTRIBUTION WIDTH 15.4 % (11.5-14.5); WHITE BLOOD COUNT 11.4 10^3/uL (4.0-10.0)
[2018-05-12 07:44] LABS: ANION GAP 5 MEQ/L (8-16); BLOOD UREA NITROGEN 11 MG/DL (7-18); CALCIUM LEVEL 8.6 MG/DL (8.5-10.1); CARBON DIOXIDE LEVEL 29 MEQ/L (21-32); CHLORIDE LEVEL 105 MEQ/L (98-107); CREATININE FOR GFR 0.64 MG/DL (0.55-1.30); GLOMERULAR FILTRATION RATE > 60.0 (>60); GLUCOSE, FASTING 94 MG/DL (70-100); POTASSIUM SERUM 4.6 MEQ/L (3.5-5.1); SODIUM LEVEL 139 MEQ/L (136-145)
[2018-05-12] MEDS: POTASSIUM CHLORIDE 10 MEQ SR TABLET PO ×2 (08:28→20:33)
[2018-05-12] MEDS: OMEPRAZOLE 20 MG CAP PO (08:28)
[2018-05-12] MEDS: ENOXAPARIN 40 MG/0.4 ML SYRINGE (J1650) SC (08:30)
[2018-05-12] MEDS: NS 1,000 ML IV ×2 (08:30→20:15)
[2018-05-12] MEDS: EUCERIN 120GM CREAM EXT ×2 (08:31→20:33)
[2018-05-12] MEDS: KETOROLAC 30 MG/ML VIAL (J1885) IV (13:24)
[2018-05-13] MEDS: PERCOCET 5MG/325MG TAB PO ×3 (01:11→14:11)
[2018-05-13 07:38] LABS: BASO % 0.3 % (0.0-1.0); EOS # 0.1 10^3/uL (0.0-0.50); EOS % 1.4 % (0.0-3.0); HEMATOCRIT 33.7 % (36.0-47.0); HEMOGLOBIN 10.8 g/dl (12.0-15.5); IMMATURE GRANULOCYTE % 3.8 % (0-3.0); LYMPH # 1.6 10^3/uL (1.5-4.5); LYMPH % 17.7 % (24.0-44.0); MEAN CORPUSCULAR HEMOGLOBIN 27.7 pg (27.0-33.0); MEAN CORPUSCULAR VOLUME 86.4 fl (80.0-96.0); MONO # 0.5 10^3/uL (0.0-0.8); MONO % 5.2 % (0.0-5.0); NEUTROPHILS # 6.5 10^3/uL (1.8-7.7); NEUTROPHILS % 71.6 % (36.0-66.0); PLATELET COUNT, AUTOMATED 389 10^3/uL (150-450); RED CELL DISTRIBUTION WIDTH 15.4 % (11.5-14.5); WHITE BLOOD COUNT 9.1 10^3/uL (4.0-10.0)
[2018-05-13 08:05] LABS: ANION GAP 6 MEQ/L (8-16); BLOOD UREA NITROGEN 12 MG/DL (7-18); CALCIUM LEVEL 9.1 MG/DL (8.5-10.1); CARBON DIOXIDE LEVEL 27 MEQ/L (21-32); CHLORIDE LEVEL 103 MEQ/L (98-107); GLOMERULAR FILTRATION RATE > 60.0 (>60); GLUCOSE, FASTING 101 MG/DL (70-100); POTASSIUM SERUM 4.2 MEQ/L (3.5-5.1); SODIUM LEVEL 136 MEQ/L (136-145)
[2018-05-13] MEDS: POTASSIUM CHLORIDE 10 MEQ SR TABLET PO (08:21)
[2018-05-13] MEDS: OMEPRAZOLE 20 MG CAP PO (08:21)
[2018-05-13] MEDS: ENOXAPARIN 40 MG/0.4 ML SYRINGE (J1650) SC (08:24)
[2018-05-13] MEDS: EUCERIN 120GM CREAM EXT (08:24)
[2018-05-13] MEDS: VANCOMYCIN HCL 1,000 MG, VIAL MATE ADAPTER 1 EACH in D5W 250 ML IV (08:45)
[2018-05-13] MEDS ORDERED: IBUPROFEN 600 MG TAB PO (09:00)
== END 2018-05-13 14:20 | disposition home or self-care (01) | DRG 383 ==
LOC: M PED 05-07 15:34 → M ED 11:39 → M ED INP 19:29 → M MS4PR 22:11
DX: L03.115 Cellulitis of right lower limb (principal); I89.0 Lymphedema, not elsewhere classified; K21.9 Gastro-esophageal reflux disease without esophagitis; E66.9 Obesity, unspecified; E87.6 Hypokalemia; Z68.38 Body mass index [BMI] 38.0-38.9, adult; Z79.899 Other long term (current) drug therapy; Z92.3 Personal history of irradiation; Z92.21 Personal history of antineoplastic chemotherapy; Z85.43 Personal history of malignant neoplasm of ovary

== ENCOUNTER 2018-05-17 19:46 | Emergency (ER) | payer OTHER ==
[2018-05-17 21:44] LABS: BASO # 0.1 10^3/uL (0.0-0.2); BASO % 0.6 % (0.0-1.0); EOS # 0.1 10^3/uL (0.0-0.50); EOS % 0.8 % (0.0-3.0); HEMATOCRIT 33.8 % (36.0-47.0); HEMOGLOBIN 10.8 g/dl (12.0-15.5); IMMATURE GRANULOCYTE % 0.6 % (0-3.0); LYMPH # 1.9 10^3/uL (1.5-4.5); LYMPH % 22.4 % (24.0-44.0); MEAN CORPUSCULAR HEMOGLOBIN 27.6 pg (27.0-33.0); MEAN CORPUSCULAR VOLUME 86.4 fl (80.0-96.0); MONO # 0.4 10^3/uL (0.0-0.8); MONO % 5.2 % (0.0-5.0); NEUTROPHILS % 70.4 % (36.0-66.0); PLATELET COUNT, AUTOMATED 465 10^3/uL (150-450); RED BLOOD COUNT 3.91 10^6/uL (4.00-5.40); RED CELL DISTRIBUTION WIDTH 14.8 % (11.5-14.5); WHITE BLOOD COUNT 8.5 10^3/uL (4.0-10.0)
[2018-05-17 21:53] LABS: APPEARANCE, URINE HAZY (CLEAR); BACTERIA, URINE AUTO NEGATIVE (NEGATIVE); BILIRUBIN, URINE AUTO NEGATIVE (NEGATIVE); BLOOD, URINE BLOOD NEGATIVE (NEGATIVE); COLOR, URINE YELLOW (YELLOW); GLUCOSE, URINE (UA) AUTO NEGATIVE (NEGATIVE); KETONE, URINE AUTO NEGATIVE (NEGATIVE); LEUKOCYTE ESTERASE, URINE AUTO NEGATIVE (NEGATIVE); MUCUS, URINE SMALL (NEGATIVE); NITRITE, URINE AUTO NEGATIVE (NEGATIVE); PROTEIN, URINE AUTO NEGATIVE (NEGATIVE); RBC, URINE AUTO 1 /HPF (0-3); SPECIFIC GRAVITY URINE AUTO 1.025 (1.002-1.035); SQUAMOUS EPITHELIAL CELL UR AU 4 /HPF (0-6); WBC, URINE AUTO 1 /HPF (0-3)
[2018-05-17 22:04] LABS: LACTIC ACID SEPSIS PROTOCOL 1.2 MMOL/L (0.4-2.0)
[2018-05-17 22:05] LABS: ANION GAP 10 MEQ/L (8-16); BLOOD UREA NITROGEN 18 MG/DL (7-18); C REACTIVE PROTEIN QUANTITATIV 1.64 MG/DL (0.00-0.30); CALCIUM LEVEL 9.2 MG/DL (8.5-10.1); CARBON DIOXIDE LEVEL 26 MEQ/L (21-32); CHLORIDE LEVEL 103 MEQ/L (98-107); CREATININE FOR GFR 0.87 MG/DL (0.55-1.30); GLOMERULAR FILTRATION RATE > 60.0 (>60); GLUCOSE, FASTING 117 MG/DL (70-100); POTASSIUM SERUM 4.2 MEQ/L (3.5-5.1); SODIUM LEVEL 139 MEQ/L (136-145)
[2018-05-17 22:07] LABS: ERYTHROCYTE SEDIMENTATION RATE 75 mm/hr (0-20)
[2018-05-17] MEDS: KETOROLAC 30 MG/ML VIAL (J1885) IV (23:16)
[2018-05-17] MEDS: CLINDAMYCIN 900 MG in APPROPRIATE DILUENT 1 EA IV (23:16)
[2018-05-17] MEDS: NS 1,000 ML IV (23:16)
== END 2018-05-18 00:24 | disposition home or self-care (01) ==
LOC: M ED 05-18 00:24
DX: R22.41 Localized swelling, mass and lump, right lower limb (principal); K21.9 Gastro-esophageal reflux disease without esophagitis; E78.5 Hyperlipidemia, unspecified
CPT/HCPCS: J1885

== ENCOUNTER → 2019-06-07 | Outpatient (CLI) | payer OTHER ==
[~2019-06-07] MED LIST changes: +ACET1TAB55 PO; +AUGM875T28 PO; +BACT800T5 PO; +CYCL5TAB PO; +DOXE150C PO; +FISH7.5C PO; +GUAI1SOL7 PO; -GUAI5ELAC PO; +HYDR-3715 PO; +IBUP-1022 PO; +IBUP-1114 PO; +LINE1TAB PO; +MELO15TA28 PO; +NAPR-837 PO; +PERCOCET PO; +VENTAER INH
[2019-06-07 11:31] LABS: BASO # 0.1 10^3/uL (0.0-0.2); BASO % 0.7 % (0.0-1.0); EOS # 0.1 10^3/uL (0.0-0.5); EOS % 1.7 % (0.0-3.0); HEMATOCRIT 41.7 % (36.0-47.0); HEMOGLOBIN 13.9 g/dl (12.0-15.5); LYMPH # 2.2 10^3/uL (1.5-5.0); LYMPH % 31.9 % (24.0-44.0); MEAN CORPUSCULAR HEMOGLOBIN 29.6 pg (27.0-33.0); MEAN CORPUSCULAR HGB CONC 33.3 g/dl (32.0-36.5); MEAN CORPUSCULAR VOLUME 88.7 fl (80.0-96.0); MONO # 0.5 10^3/uL (0.0-0.8); MONO % 7.9 % (0.0-5.0); NEUTROPHILS % 57.7 % (36.0-66.0); PLATELET COUNT, AUTOMATED 255 10^3/uL (150-450); WHITE BLOOD COUNT 6.9 10^3/uL (4.0-10.0)
[2019-06-07 12:05] LABS: ALBUMIN 4.1 GM/DL (3.2-5.2); ALT/SGPT 47 U/L (12-78); BILIRUBIN,TOTAL 0.4 MG/DL (0.2-1.0); BLOOD UREA NITROGEN 16 MG/DL (7-18); CALCIUM LEVEL 9.3 MG/DL (8.5-10.1); CARBON DIOXIDE LEVEL 27 MEQ/L (21-32); CHLORIDE LEVEL 102 MEQ/L (98-107); CHOLESTEROL LEVEL 190 MG/DL (<200); CHOLESTEROL RISK RATIO 4.871 (<5); GLOMERULAR FILTRATION RATE > 60.0 (>58); GLUCOSE, FASTING 96 MG/DL (70-100); HDL CHOLESTEROL 39 MG/DL (>40); LDL CHOLESTEROL 101 MG/DL (<100); NON-HDL-C 151 MG/DL; POTASSIUM SERUM 3.6 MEQ/L (3.5-5.1); SODIUM LEVEL 139 MEQ/L (136-145); TOTAL PROTEIN 7.6 GM/DL (6.4-8.2); TRIGLYCERIDES LEVEL 252 MG/DL (<150)
[2019-06-07 12:14] LABS: HEMOGLOBIN A1c 5.7 %
== END ==
LOC: M LAB 10:06
PROVIDERS: ATTEND Nurse Practitioner Adult Health
DX: Z13.9 Encounter for screening, unspecified (principal)

== ENCOUNTER → 2019-08-05 | Outpatient (CLI) | payer OTHER ==
--- NOTE | 2019-08-05 10:23 | REPMRS ---
Patient History The patient states she has not had a clinical breast exam in over a year. No known family history of cancer. Digital Woman Screen Mammo: August 05, 2019 - Exam #: [id number] Bilateral CC and MLO view(s) were taken. Technologist: Estee Sow, Technologist Prior study comparison: April 02, 2012, bilateral digital mammo screening bilat, performed at [facility]. FINDINGS: The breast tissue is heterogeneously dense. This may lower the sensitivity of mammography. There is a moderate amount of heterogeneously dense fibroglandular tissue which is fairly symmetric. There is no interval development of dominant mass, architectural distortion, or grouped microcalcification typical of malignancy. There has been no change in the appearance of the mammogram from the prior studies. 3-D tomosynthesis shows no additional findings. Assessment: BI-RADS/ACR category 1 mammogram. Negative Mammogram. Recommendation Routine screening mammogram of both breasts in 1 year (for women over age 40). This patient's Lifetime Breast Cancer RIsk is estimated at 13.5 %. This mammogram was interpreted with the aid of an FDA-approved computer-aided dectection system. Electronically Signed By: Delfin Mendieta MD 08/05/19 [id number]
== END ==
LOC: M WHC 08:45
PROVIDERS: ATTEND Nurse Practitioner Adult Health
DX: Z12.31 Encounter for screening mammogram for malignant neoplasm of breast (principal)

== ENCOUNTER → 2021-01-08 | Outpatient (CLI) | payer OTHER ==
--- NOTE | 2021-01-08 10:37 | PFTRPT ---
Height: 61.00 Inches Weight: 213.00 Lbs BSA: 1.94 Diagnosis: R05 DATE: 01/08/2021 ORDERING PHYSICIAN: PACO Felix Pre and post bronchodilator studies have excellent technical quality. Forced vital capacity is reduced. FEV1 is in proportion. Obstructive index is therefore normal. Expiratory limit of the flow-volume loop does suggest some degree of flow rate limitation. Very favorable bronchodilator response is identified. Total lung capacity is normal. Residual volume is borderline for air trapping. Diffusing capacity is normal. Hemoglobin is reduced at 10.8. Airway resistance and conductance are normal. IMPRESSION: Significant bronchodilator response to a nonspecific flow rate limitation with concomitant underlying anemia. Please correlate clinically. MTDD
== END ==
LOC: M CARPUL 09:44
PROVIDERS: ATTEND Nurse Practitioner Family
DX: R05 Cough (principal)

== ENCOUNTER → 2021-01-13 | Outpatient (CLI) | payer OTHER ==
--- NOTE | 2021-01-13 15:20 | REP ---
INDICATION: ABNORMAL FINDING OF LUNG FIELD COMPARISON: 05/13/2013 the latest prior TECHNIQUE: Standard helical technique without intravenous contrast administration FINDINGS: Limited evaluation of the mediastinum and pulmonary jed show no evidence of a mass or adenopathy, however, hilar adenopathy seen on the prior exam cannot be accurately evaluated without intravenous contrast administration. There are no pleural or pericardial effusions. The imaged upper abdomen shows diffuse low density throughout the hepatic parenchyma. The imaged osseous structures are within normal limits. Evaluation of the lung simon shows marked improvement and near complete clearing of the scattered reticulonodular densities seen on the prior exam. Note is again made of an incidental calcified granuloma in the left upper lobe. No new abnormal nodules, masses, or opacities have developed. IMPRESSION: 1. Limited evaluation of the pulmonary jed as described above. 2. Markedly improved lung simon. <Electronically signed by Piero Reina > 01/13/21 [id number]
== END ==
LOC: M PLAIMG 13:24
PROVIDERS: ATTEND Nurse Practitioner Family
DX: R91.8 Other nonspecific abnormal finding of lung field (principal)

== ENCOUNTER → 2023-06-07 | Outpatient (REF) | payer OTHER, MEDICAID ==
[~2023-06-07] MED LIST changes: +FISH10005 PO; -FISH7.5C PO
== END ==
LOC: M SFHCWAGY 17:33
PROVIDERS: ATTEND Nurse Practitioner Family
DX: Z12.4 Encounter for screening for malignant neoplasm of cervix (principal)

== ENCOUNTER → 2023-07-11 | Outpatient (REF) | payer OTHER, MEDICAID | LOC: M SFHCWAGY 18:22 | PROVIDERS: ATTEND Nurse Practitioner Family | DX: R87.615 Unsatisfactory cytologic smear of cervix (principal); Z12.4 Encounter for screening for malignant neoplasm of cervix ==

== ENCOUNTER → 2024-07-05 | Outpatient (REF) | payer OTHER ==
[~2024-07-05] MED LIST changes: -CYCL5TAB PO; +CYCL5TAB4 PO
[2024-07-05 17:59] LABS: ALBUMIN 4.1 G/DL (3.2-5.2); ALKALINE PHOSPHATASE 95 U/L (35-104); ALT/SGPT 19 U/L (7.0-40); AST/SGOT 17 U/L (<34); BILIRUBIN,TOTAL 0.3 MG/DL (0.3-1.2); BLOOD UREA NITROGEN 13 MG/DL (9-23); CALCIUM LEVEL 10.2 MG/DL (8.5-10.1); CARBON DIOXIDE LEVEL 29 MMOL/L (20-31); CHLORIDE LEVEL 102 MMOL/L (98-107); CHOLESTEROL LEVEL 280 MG/DL (<200); CHOLESTEROL RISK RATIO 5.31 (<5); CREATININE FOR GFR 0.72 MG/DL (0.55-1.30); GLOMERULAR FILTRATION RATE > 60.0 (>58); GLUCOSE, FASTING 94 MG/DL (60-100); HDL CHOLESTEROL 52.7 MG/DL (>40); LDL CHOLESTEROL 160.9 MG/DL (<100); NON-HDL-C 227.3 MG/DL; POTASSIUM SERUM 4.1 MMOL/L (3.5-5.1); SODIUM LEVEL 140 MMOL/L (136-145); THYROID STIMULATING HORMONE 3.392 uIU/ML (0.55-4.78); TOTAL PROTEIN 8.1 G/DL (5.7-8.2); TRIGLYCERIDES LEVEL 332 MG/DL (<150)
== END ==
LOC: M LAB REF 16:19
PROVIDERS: ATTEND Family Medicine Addiction Medicine
DX: I10 Essential (primary) hypertension (principal)

== ENCOUNTER → 2024-07-22 | Outpatient (CLI) | payer OTHER | LOC: M WHC 07:57 | PROVIDERS: ATTEND Nurse Practitioner Family | DX: Z12.31 Encounter for screening mammogram for malignant neoplasm of breast (principal) ==

== ENCOUNTER → 2025-01-30 | Outpatient (CLI) | payer OTHER | LOC: M RAD 11:49 | PROVIDERS: ATTEND Family Medicine Addiction Medicine | DX: M25.512 Pain in left shoulder (principal) ==

== ENCOUNTER 2025-02-10 16:46 | Inpatient (IN) | payer OTHER ==
[~2025-02-10] VITALS: Ht 154.9 cm; Wt 92.8 kg
[~2025-02-10 16:46] MED LIST changes: -IBUP-1022 PO; +IBUP600T42 PO
[2025-02-10 18:10] LABS: BASO # 0.0 10^3/uL (0.0-0.2); BASO % 0.1 % (0.0-1.0); EOS # 0.0 10^3/uL (0.0-0.5); EOS % 0.0 % (0.0-3.0); LYMPH # 0.6 10^3/uL (1.5-5.0); LYMPH % 3.1 % (24.0-44.0); MONO # 0.4 10^3/uL (0.0-0.8); MONO % 2.0 % (2.0-8.0); NEUTROPHILS # 19.3 10^3/uL (1.5-8.5); NEUTROPHILS % 94.0 % (36.0-66.0); PLATELET COUNT, AUTOMATED 292 10^3/uL (150-450)
[2025-02-10] MEDS: cefTRIAXone SOD 1 GM in DEXTROSE 5% (D5W) ADV/MINI-BAG 50 ML IV ONE (18:13)
[2025-02-10 18:15] LABS: ERYTHROCYTE SEDIMENTATION RATE 86 mm/hr (0-20)
[2025-02-10 18:43] LABS: C REACTIVE PROTEIN QUANTITATIV 29.4 MG/DL (<1.0); CALCIUM LEVEL 9.2 MG/DL (8.5-10.1); CARBON DIOXIDE LEVEL 26.0 MMOL/L (20-31); CHLORIDE LEVEL 96.0 MMOL/L (98-107); CREATININE FOR GFR 0.89 MG/DL (0.55-1.30); GLOMERULAR FILTRATION RATE 80.9 (>58); POTASSIUM SERUM 4.1 MMOL/L (3.5-5.1); SODIUM LEVEL 135.0 MMOL/L (136-145)
[2025-02-10] MEDS ORDERED: OMEP40CA5 PO (20:20)
[2025-02-10] MEDS ORDERED: ALBU2.5V10 INH (20:20)
[2025-02-10] MEDS ORDERED: KETO2CR TOP (20:20)
[2025-02-10] MEDS ORDERED: LORA-1041 PO (20:20)
[2025-02-10] MEDS ORDERED: ALBU8.5H INH (20:20)
[2025-02-10] MEDS ORDERED: VENL37.598 PO (20:20)
[2025-02-10] MEDS ORDERED: NYST0.1C TOP (20:20)
[2025-02-10] MEDS ORDERED: HYDR12.510 PO (20:20)
[2025-02-10] MEDS ORDERED: HOME MED LIST COMPLETE! XX SCH (20:25)
[2025-02-10] MEDS ORDERED: ALBUTEROL SULFATE 2.5 MG/0.5 ML INH CONCENTRATE NEB SOLN INH PRN (20:45)
[2025-02-10] MEDS ORDERED: ALBUTEROL 90 MCG/ACT 8 GM HFA INHALER INH PRN (20:45)
[2025-02-10] MEDS: NYSTATIN CREAM 15 GM TOP SCH (21:00)
[2025-02-10] MEDS: VENLAFAXINE **XR** 37.5 MG CAPSULE PO SCH (21:16)
[2025-02-10] MEDS: SODIUM CHLORIDE 0.9% 1000 ML IV SCH (21:16)
[2025-02-10] MEDS: NS (Normal Saline) 0.9% 1,000 ML IV SCH (22:27)
[2025-02-10] MEDS: PIPERACILLIN/TAZOBACTAM SOD 4.5 GM in DEXTROSE 5% (D5W) ADV/MINI-BAG 50 ML IV SCH (22:28)
[2025-02-10 22:30] VITALS: BP 118/64; TEMP 98.1; O2SAT 99
[2025-02-10] MEDS: VANCOMYCIN HCL 2,000 MG, VIAL MATE ADAPTER 1 EACH in NS 500 ML IV ONE (23:51)
[2025-02-10] MEDS: ACETAMINOPHEN 325 MG TAB PO PRN (23:51)
[2025-02-11 02:00] VITALS: BP 123/71; TEMP 98.4; O2SAT 98
[2025-02-11 06:00] VITALS: BP 112/64; TEMP 97.7; O2SAT 98
[2025-02-11 08:00] VITALS: BP 113/65; TEMP 97.5; O2SAT 99
[2025-02-11 08:05] LABS: BASO # 0.0 10^3/uL (0.0-0.2); BASO % 0.1 % (0.0-1.0); EOS # 0.0 10^3/uL (0.0-0.5); EOS % 0.0 % (0.0-3.0); LYMPH # 0.5 10^3/uL (1.5-5.0); LYMPH % 3.2 % (24.0-44.0); MONO # 0.4 10^3/uL (0.0-0.8); MONO % 2.6 % (2.0-8.0); NEUTROPHILS # 13.4 10^3/uL (1.5-8.5); NEUTROPHILS % 93.3 % (36.0-66.0); PLATELET COUNT, AUTOMATED 241 10^3/uL (150-450)
[2025-02-11 08:29] LABS: CALCIUM LEVEL 8.3 MG/DL (8.5-10.1); CARBON DIOXIDE LEVEL 26.0 MMOL/L (20-31); CHLORIDE LEVEL 103.0 MMOL/L (98-107); CREATININE FOR GFR 0.88 MG/DL (0.55-1.30); GLOMERULAR FILTRATION RATE 82.0 (>58); POTASSIUM SERUM 3.1 MMOL/L (3.5-5.1); SODIUM LEVEL 140.0 MMOL/L (136-145)
[2025-02-11] MEDS: KETOCONAZOLE 2% CREAM TOP SCH (09:00)
[2025-02-11] MEDS: MELOXICAM 7.5 MG TAB PO SCH (09:10)
[2025-02-11] MEDS: OMEPRAZOLE 20MG CAP PO SCH (09:10)
[2025-02-11] MEDS: LORATADINE 10 MG TAB PO SCH (09:10)
[2025-02-11] MEDS: ENOXAPARIN 40 MG/0.4 ML SYRINGE (J1650 PER 10MG) SC SCH (09:11)
[2025-02-11] MEDS: VANCOMYCIN HCL 1,000 MG, VIAL MATE ADAPTER 1 EACH in NS 250 ML IV SCH (11:33)
[2025-02-11] MEDS: POTASSIUM CHLORIDE 10MEQ SR TABLET PO SCH (12:44)
[2025-02-11 14:00] VITALS: BP 122/66; TEMP 97.7; O2SAT 98
[2025-02-11 16:00] VITALS: BP 116/62; TEMP 97.3; O2SAT 100
[2025-02-11 21:26] VITALS: BP 133/74; TEMP 97.2; O2SAT 99
[2025-02-12 05:47] VITALS: BP 124/72; TEMP 97.3; O2SAT 100
[2025-02-12 07:12] LABS: BASO # 0.0 10^3/uL (0.0-0.2); BASO % 0.3 % (0.0-1.0); EOS # 0.1 10^3/uL (0.0-0.5); EOS % 0.9 % (0.0-3.0); LYMPH # 0.8 10^3/uL (1.5-5.0); LYMPH % 9.9 % (24.0-44.0); MONO # 0.4 10^3/uL (0.0-0.8); MONO % 4.6 % (2.0-8.0); NEUTROPHILS # 6.6 10^3/uL (1.5-8.5); NEUTROPHILS % 83.9 % (36.0-66.0); PLATELET COUNT, AUTOMATED 224 10^3/uL (150-450)
[2025-02-12 07:32] LABS: CALCIUM LEVEL 8.4 MG/DL (8.5-10.1); CARBON DIOXIDE LEVEL 24 MMOL/L (20-31); CHLORIDE LEVEL 109 MMOL/L (98-107); CREATININE FOR GFR 0.78 MG/DL (0.55-1.30); GLOMERULAR FILTRATION RATE > 90.0 (>58); POTASSIUM SERUM 3.5 MMOL/L (3.5-5.1); SODIUM LEVEL 143 MMOL/L (136-145)
[2025-02-12] MEDS: ENOXAPARIN 40 MG/0.4 ML SYRINGE (J1650 PER 10MG) SC SCH (09:00)
[2025-02-12 10:41] LABS: IRON (FE) 9.0 UG/DL (50-170); VANCOMYCIN LEVEL TROUGH 10.0 UG/ML (10.0-20.0)
[2025-02-12 10:42] LABS: PERCENT SATURATION 2.7 % (13.2-45.0)
[2025-02-12 10:47] LABS: VITAMIN B12 LEVEL 598.0 PG/ML (211-911)
[2025-02-12 14:00] VITALS: BP 126/75; TEMP 97.4; O2SAT 98
[2025-02-12] MEDS: FERRIC CARBOXYMALTOSE INJ 750 MG, VIAL MATE ADAPTER 1 EACH in NS 100 ML IV ONE (18:16)
[2025-02-12 21:07] VITALS: BP 130/83; TEMP 97.5; O2SAT 100
[2025-02-12] MEDS: VANCOMYCIN HCL 1,250 MG, VIAL MATE ADAPTER 1 EACH in NS 250 ML IV SCH (21:10)
[2025-02-13 05:40] VITALS: BP 132/83; TEMP 97; O2SAT 99
[2025-02-13 07:16] LABS: BASO # 0.0 10^3/uL (0.0-0.2); BASO % 0.6 % (0.0-1.0); EOS # 0.1 10^3/uL (0.0-0.5); EOS % 1.9 % (0.0-3.0); LYMPH # 1.1 10^3/uL (1.5-5.0); LYMPH % 17.6 % (24.0-44.0); MONO # 0.4 10^3/uL (0.0-0.8); MONO % 6.4 % (2.0-8.0); NEUTROPHILS # 4.6 10^3/uL (1.5-8.5); NEUTROPHILS % 72.3 % (36.0-66.0); PLATELET COUNT, AUTOMATED 254 10^3/uL (150-450)
[2025-02-13 07:32] LABS: C REACTIVE PROTEIN QUANTITATIV 8.75 MG/DL (<1.0)
[2025-02-13 07:38] LABS: CALCIUM LEVEL 8.7 MG/DL (8.5-10.1); CARBON DIOXIDE LEVEL 24 MMOL/L (20-31); CHLORIDE LEVEL 106 MMOL/L (98-107); CREATININE FOR GFR 0.75 MG/DL (0.55-1.30); GLOMERULAR FILTRATION RATE > 90.0 (>58); POTASSIUM SERUM 3.3 MMOL/L (3.5-5.1); SODIUM LEVEL 143 MMOL/L (136-145)
[2025-02-13] MEDS: POTASSIUM CHLORIDE 10MEQ SR TABLET PO ONE (08:40)
[2025-02-13] MEDS ORDERED: CEPH500C PO (11:03)
== END 2025-02-13 12:30 | disposition home or self-care (01) | DRG 720 ==
LOC: EDBD 16:46 → M ED 16:46 → M ED INP 20:03 → M MS5PR 22:12
PROVIDERS: ADMIT Student in an Organized Health Care Education/Training Program; ATTEND Internal Medicine
DX: A41.9 Sepsis, unspecified organism (principal); I10 Essential (primary) hypertension; L03.115 Cellulitis of right lower limb; E87.6 Hypokalemia; D64.9 Anemia, unspecified; G47.00 Insomnia, unspecified; F41.9 Anxiety disorder, unspecified; F32.A Depression, unspecified; M19.019 Primary osteoarthritis, unspecified shoulder; G89.29 Other chronic pain; K21.9 Gastro-esophageal reflux disease without esophagitis; Z85.43 Personal history of malignant neoplasm of ovary; Z79.899 Other long term (current) drug therapy

== ENCOUNTER → 2025-02-25 | Outpatient (REF) | payer OTHER, MEDICAID ==
[~2025-02-25] MED LIST changes: +ALBU2.5V10 INH; +ALBU8.5H INH; +CEPH500C PO; +HYDR12.510 PO; +KETO2CR TOP; +LORA-1041 PO; +NYST0.1C TOP; +OMEP40CA5 PO; +VENL37.598 PO
[2025-02-25 19:42] LABS: BASO # 0.1 10^3/uL (0.0-0.2); BASO % 1.0 % (0.0-1.0); EOS # 0.4 10^3/uL (0.0-0.5); EOS % 5.5 % (0.0-3.0); LYMPH # 1.2 10^3/uL (1.5-5.0); LYMPH % 18.5 % (24.0-44.0); MONO # 0.4 10^3/uL (0.0-0.8); MONO % 6.7 % (2.0-8.0); NEUTROPHILS # 4.3 10^3/uL (1.5-8.5); NEUTROPHILS % 68.0 % (36.0-66.0); PLATELET COUNT, AUTOMATED 330 10^3/uL (150-450)
[2025-02-25 19:46] LABS: CALCIUM LEVEL 9.6 MG/DL (8.5-10.1); CARBON DIOXIDE LEVEL 31 MMOL/L (20-31); CHLORIDE LEVEL 102 MMOL/L (98-107); CREATININE FOR GFR 0.68 MG/DL (0.55-1.30); GLOMERULAR FILTRATION RATE > 90.0 (>58); POTASSIUM SERUM 4.3 MMOL/L (3.5-5.1); SODIUM LEVEL 143 MMOL/L (136-145)
== END ==
LOC: M LAB REF 16:23
PROVIDERS: ATTEND Family Medicine Addiction Medicine
DX: D50.9 Iron deficiency anemia, unspecified (principal); E87.6 Hypokalemia

== ENCOUNTER → 2025-03-21 | Outpatient (CLI) | payer MEDICAID, OTHER, SELFPAY ==
[~2025-03-21] MED LIST changes: -FISH10005 PO; +FISH1CAP38 PO
== END ==
LOC: M RAD 13:42
PROVIDERS: ATTEND Family Medicine Addiction Medicine
DX: M79.661 Pain in right lower leg (principal)

== ENCOUNTER → 2025-04-08 | Outpatient (CLI) | payer OTHER ==
[~2025-04-08] MED LIST changes: +FISH10005 PO; -FISH1CAP38 PO
== END ==
LOC: M RAD 12:15
PROVIDERS: ATTEND Family Medicine Addiction Medicine
DX: M25.571 Pain in right ankle and joints of right foot (principal); M79.89 Other specified soft tissue disorders